=== PATIENT | male | born 1960 | race African-American/Black ===

== ENCOUNTER 2018-05-11 21:50 | Inpatient (IN) | payer SELFPAY ==
[2018-05-11 22:10] LABS: BASO # 0.1 x10^3/uL (0.0-0.2); BASO % 0 % (0-3); EOS # 0.1 x10^3/uL (0.0-0.7); EOS % 1 % (0-3); HEMATOCRIT 46.1 % (39.0-53.0); HEMOGLOBIN 15.5 g/dL (13.0-17.5); LYMPH # 1.8 x10^3/uL (1.0-4.8); LYMPH % 12 % (24-48); MEAN CORPUSCULAR HEMOGLOBIN 29 pg (25-35); MEAN CORPUSCULAR HGB CONC 34 g/dL (31-37); MEAN CORPUSCULAR VOLUME 86 fL (79-100); MONO # 0.7 x10^3/uL (0.0-1.1); MONO % 5 % (0-9); NEUT # 13.1 x10^3uL (1.8-7.7); NEUT % 83 % (31-73); PLATELET COUNT 217 x10^3/uL (140-400); RED BLOOD COUNT 5.39 x10^6/uL (4.30-5.70); RED CELL DISTRIBUTION WIDTH 14.7 % (11.5-14.5); WHITE BLOOD COUNT 15.8 x10^3/uL (4.0-11.0)
[2018-05-11 22:13] LABS: ADD MAN DIFF? YES
[2018-05-11 22:24] LABS: ANION GAP 9 (6-14); BLOOD UREA NITROGEN 13 mg/dL (8-26); BUN/CREATININE RATIO 13 (6-20); CALCIUM 8.6 mg/dL (8.5-10.1); CARBON DIOXIDE 26 mmol/L (21-32); CHLORIDE 104 mmol/L (98-107); GFR 76.5; GLUCOSE 100 mg/dL (70-99); POTASSIUM 3.2 mmol/L (3.5-5.1); SODIUM 139 mmol/L (136-145)
[2018-05-11] MEDS: IV NORMAL SALINE 1000ML BAG 1,000 ML IV (22:25)
[2018-05-11 22:43] LABS: % BANDS 10 % (0-9); % BASOS 2 % (0-3); % EOS 1 % (0-5); % LYMPHS 15 % (24-48); % MONOS 3 % (0-10); % SEGS 69 % (35-66); ALBUMIN 3.6 g/dL (3.4-5.0); ALBUMIN/GLOBULIN RATIO 0.6 (1.0-1.7); ALK PHOS 70 U/L (46-116); ALT (SGPT) 77 U/L (16-63); AST (SGOT) 50 U/L (15-37); LIPASE 103 U/L (73-393); PLT ESTIMATE ADEQUATE (ADEQUATE); TOTAL BILIRUBIN 0.4 mg/dL (0.2-1.0); TOTAL PROTEIN 9.2 g/dL (6.4-8.2)
[2018-05-11] MEDS ORDERED: CONTRAST GIVEN. MC (22:45)
[2018-05-11] MEDS: IOHEXOL 300 MG/ML 100ML VIAL. IV (22:47)
[2018-05-11 22:54] LABS: NT-PRO BNP 154 pg/mL (0-124)
[2018-05-11 22:54] LABS: CKMB MASS < 0.5 ng/mL (0.0-3.6); CREATINE KINASE 169 U/L (39-308)
[2018-05-12 00:18] LABS: BILIRUBIN,URINE NEGATIVE (NEG); CLARITY,URINE CLEAR; COLOR,URINE YELLOW; GLUCOSE,URINE NEGATIVE (NEG); NITRITE,URINE NEGATIVE (NEG); PH,URINE 5.5; PROTEIN,URINE NEGATIVE (NEG-TRACE)
[2018-05-12 00:28] LABS: BACTERIA,URINE 0 /HPF (0-FEW); RBC,URINE 0 /HPF (0-2); SQUAMOUS EPITHELIAL CELL,UR OCC /LPF; WBC,URINE 0 /HPF (0-4)
[2018-05-12 00:29] LABS: AMPHETAMINE/METHAMPHETAMINE POS (NEG); BARBITURATES NEG (NEG); BENZODIAZEPINES NEG (NEG); CANNABINOIDS POS (NEG); COCAINE NEG (NEG); ETHANOL, URINE NEG (NEG); METHADONE NEG (NEG); OPIATES NEG (NEG); PHENCYCLIDINE NEG (NEG)
[2018-05-12 05:23] LABS: TROPONINI < 0.017 ng/mL (0.000-0.055)
[2018-05-12 08:00] LABS: ANION GAP 11 (6-14); BLOOD UREA NITROGEN 14 mg/dL (8-26); CALCIUM 8.4 mg/dL (8.5-10.1); CARBON DIOXIDE 25 mmol/L (21-32); CHLORIDE 104 mmol/L (98-107); CHOLESTEROL 109 mg/dL (0-200); CREATININE 1.1 mg/dL (0.7-1.3); GFR 82.9; GLUCOSE 103 mg/dL (70-99); HDLC 34 mg/dL (40-60); LDLC 67 mg/dL (0-100); NON-HDL CHOLESTEROL 75 mg/dL (0-129); POTASSIUM 3.5 mmol/L (3.5-5.1); SODIUM 140 mmol/L (136-145); TRIGLYCERIDES 40 mg/dL (0-150); VLDLC 8 mg/dL (0-40)
[2018-05-12 08:04] LABS: TROPONINI < 0.017 ng/mL (0.000-0.055)
[2018-05-12 08:04] LABS: CHOLESTEROL/HDL RATIO 3.2
[2018-05-13] MEDS: REGADENOSON 0.4 MG/5 ML DISP.SYRIN. IV (08:58)
== END 2018-05-13 15:21 | disposition home or self-care (01) | DRG 303 ==
LOC: 5 NORTH 05-12 01:10 → ER 21:50
DX: I25.119 Atherosclerotic heart disease of native coronary artery with unspecified angina pectoris (principal); R07.89 Other chest pain; F20.9 Schizophrenia, unspecified; D72.829 Elevated white blood cell count, unspecified; E87.6 Hypokalemia; F12.90 Cannabis use, unspecified, uncomplicated; F15.10 Other stimulant abuse, uncomplicated; F17.210 Nicotine dependence, cigarettes, uncomplicated; K21.9 Gastro-esophageal reflux disease without esophagitis; Z83.3 Family history of diabetes mellitus; Z82.49 Family history of ischemic heart disease and other diseases of the circulatory system; F19.10 Other psychoactive substance abuse, uncomplicated
CPT/HCPCS: 36415; 71045; 71275; 74174; 78452; 80048; 80053; 80061; 80307; 81001; 82553; 83690; 83735; 83880; 84484; 85007; 85025; 93005; 93017; 93306; 96360; 96361; 96374; 96375; 96376; 99285-25; 99406; A9500; J2785; J7030; Q9967